=== PATIENT | female | born 1980 | race Caucasian/White ===

== ENCOUNTER 2018-05-29 10:14 | Outpatient (CLI) | END 2018-05-29 13:30 | disposition home or self-care (01) ==

== ENCOUNTER 2018-06-05 08:32 | Outpatient (CLI) | payer OTHER ==
[~2018-06-05] VITALS: Ht 160 cm; Wt 110.0 kg
[~2018-06-05 08:32] MED LIST: FER325 PO; FLUT1AER INHALATION; PREN-93 PO
[2018-06-05 09:01] VITALS: Ht 160 cm; Wt 110.0 kg
[2018-06-05 09:02] VITALS: BP 119/71; PULSE 76; RESP 20
--- NOTE | 2018-06-05 12:19 | PN ---
Triage Information Date/Time Reason for visit: 38+wks Hx of IUFD for NST BPP Weeks of Gestation 38+ /Para 5/4 Diabetes: none Hypertention: none Objective Vital Signs Date Temp Pulse Resp B/P (MAP) Pulse Ox O2 O2 Flow FiO2 Time Delivery Rate 06/05/18 97.7 76 20 119/71 Room Air 09:02 (87) Results/Medications Results 24 hrs Laboratory Tests Test 06/05/18 11:10 Membranes Rupture NEGATIVE Disposition: Discharge Assessment/Plan BP 03/15 Precautions discussed Questions answered Follow up with provider CHRISTEN SHEFFIELD M.D. Jun 05, 2018 12:19
--- NOTE | 2018-06-05 13:17 | TRIAGE ---
OB Triage Datetime Report Generated by CPN: 06/05/2018 13:17 Datetime: 06/05/2018 10:45 Labor Evaluation Frequency: NONE Pattern: Normal: <= 5 Contractions in 10 Minutes Resting Tone Tea: Relaxed Heart Rate FHR Baseline Rate: 135 Monitor Mode: External US FHR Baseline Changes: No Baseline Change Variability: Moderate 6-25 bpm Accelerations: 15X15 Decelerations: None Category: Category I Pain Assessment Pain Scale: 0 Pain Goal: 0 Datetime: 06/05/2018 08:51 Maternal Assessment Level of Consciousness: Fully Conscious DTR's/Clonus: DTRs 2+; No Clonus Headache: Denies Blurred Vision: No Respiratory Effort: Unlabored; Regular Rhythm; Equal Expansion Breath Sounds, Left: Clear and Equal Breath Sounds, Right: Clear and Equal Nausea/Vomiting: Denies RUQ Epigastric Pain: Denies Facial Edema: None Temperature Route: Axillary Fall Risk Assessment History of Falling: (0) No Secondary Diagnosis: (0) No Ambulatory Aid: (0) Bedrest/Nurse Assist IV Therapy: (0) No Gait: (0) Normal/Bedrest/Immobile Mental Status: (0) Oriented to Own Ability Fall Score: 0 Fall Risk Score Definition: No Risk: No action required Datetime: 06/05/2018 08:45 Maternal Assessment Level of Consciousness: Fully Conscious DTR's/Clonus: DTRs 2+ Headache: Denies Blurred Vision: No Nausea/Vomiting: Denies RUQ Epigastric Pain: Denies Facial Edema: None Pattern: Normal: <= 5 Contractions in 10 Minutes Heart Rate FHR Baseline Rate: 145 Monitor Mode: External US FHR Baseline Changes: No Baseline Change Variability: Moderate 6-25 bpm Accelerations: 10X10 Decelerations: None Category: Category I Pain Assessment Pain Scale: 0 Pain Presence: None/Denies Pain Type: N/A Pain Goal: 0 Vaginal Exam Membrane Status: Intact Datetime: 05/29/2018 10:52 Time of Arrival: 06/05/2018 09:30 EGA: 37.5 Arrived By: Ambulatory Arrived From: Home Chief Complaint: NST/BPP DUE TO TERM FD WITH PRIOR Movement: Present Contractions: Denies/Absent Rupture of Membranes: Denies Vaginal Bleeding: None Vaginal Discharge: Denies Recent Sexual Intercouse: Denies Abdominal Trauma: Not Applicable Patient Complaints: None Provider Notified: DR patterson Initial Plan: EFM,NST.BPP Datetime: 05/29/2018 10:41 Fall Score: 0 Fall Risk Score Definition: No Risk: No action required
== END 2018-06-05 12:20 | disposition home or self-care (01) ==
LOC: OBT 08:32 → L-D 08:33 → OBT 12:20
PROVIDERS: ATTEND Specialist
DX: O09.293 Supervision of pregnancy with other poor reproductive or obstetric history, third trimester (principal); O36.8330 Maternal care for abnormalities of the fetal heart rate or rhythm, third trimester, not applicable or unspecified; O09.523 Supervision of elderly multigravida, third trimester; Z3A.38 38 weeks gestation of pregnancy
CPT/HCPCS: 76815; 76818; 84112; Z7500; G0463

== ENCOUNTER 2018-06-07 07:53 | Inpatient (IN) | payer OTHER ==
[~2018-06-07] VITALS: Ht 162.6 cm; Wt 94.2 kg
[2018-06-07] MEDS ORDERED: LACTATED RINGER'S 1,000 ML IV PRN (08:21)
[2018-06-07 08:30] VITALS: BP 120/70; PULSE 84; RESP 19; Ht 162.6 cm; Wt 94.2 kg
[2018-06-07] MEDS ORDERED: OXYTOCIN 30 UNITS/LR 500 ML IV SCH ×2 (08:30)
[2018-06-07] MEDS ORDERED: IBUPROFEN 600 MG TAB PO PRN (08:30)
[2018-06-07] MEDS ORDERED: BUTORPHANOL 2 MG INJ IV PRN (08:30)
[2018-06-07] MEDS ORDERED: METHYLERGONOVINE 0.2 MG INJ IM PRN (08:30)
[2018-06-07] MEDS ORDERED: MISOPROSTOL 200 MCG TAB PR PRN (08:30)
[2018-06-07] MEDS ORDERED: BUTORPHANOL 1 MG INJ IV PRN (08:30)
[2018-06-07] MEDS ORDERED: OXYTOCIN 30 UNITS/LR 500 ML IV PRN (08:30)
[2018-06-07] MEDS ORDERED: CARBOPROST 250 MCG INJ IM PRN (08:30)
[2018-06-07] MEDS ORDERED: LIDOCAINE 1% (MPF) 30 ML INJ INJ PRN (08:30)
[2018-06-07] MEDS: LACTATED RINGER'S 1,000 ML IV SCH ×3 (11:18→19:05)
[2018-06-07] MEDS: OXYTOCIN 30 UNITS/LR 500 ML IV SCH (12:17)
--- NOTE | 2018-06-07 16:03 | HP ---
Date/Time of Note Date/Time of Note DATE: 06/07/18 TIME: 15:58 OB - History Hx of Present Free Text/Dictation 37 years old with single intrauterine at 38 weeks with a NEVILLE of 06/21/2017 with history of term demise scheduled for induction of labor. She states good movement. She denies nausea, vomiting, shortness of breath, chest pain, headache, visual changes, vaginal bleeding or LOF. Chief Complaint: Scheduled for induction of labor Estimated Due Date: Jun 21, 2017 : 6 Para: 4 Spontaneous : 0 Therapeutic : 1 Care: Good Care Ultrasounds: Normal mid trimester US Obstetrical Complications: None Medical Complications: None Past Family/Social History * Past Medical, Surgical, Family and Obstetric Histories reviewed from chart. Blood Type: AB+ Rubella: immune RPR/VDRL: Negative GBS Status: Negative HBsAG: Negative OB Admission Exam Vital Signs Vital Signs Vital Signs Date Temp Pulse Resp B/P (MAP) Pulse Ox O2 O2 Flow FiO2 Time Delivery Rate 06/07/18 98.0 84 19 120/70 Room Air 08:30 (87) Physical Exam HEENT: WNL Heart: Rhythm Normal Lungs: Clear Abdomen: WNL Extremities: Normal Cervical Dilatation: 3cm Effacement: 50% Station: -2 Membranes: Intact Heart Rate: 130's Accelerations: Accelerations Present Decelerations: No Decelerations Varibility: Moderate Contractions on Admission: >10 Minutes Apart Intensity: Mild Last 72 hours Lab Results CBC & BMP 06/07/18 10:30 OB Assessment/Plan Other plan: 37 years old at 38 weeks with history of term demise admitted for induction of labor. - FHR: No sign of metabolic acidosis- Category I - Continuous EFM, toco - CBC, blood type and screen - Analgesia options with R/B/A discussed in detail with patient - Epidural per patient request - Please see the orders - AB+/Rubella: Immune - GBS: negative Admission, procedures, expectations, risks and possible complications have been discussed in detail with the patient. Risk of vaginal delivery including but not limited to bleeding, infection, cervical laceration, placental retention, injury to fetus, blood transfusion, blood transfusion related infection, risk of anesthesia, adhesion, cervical laceration, episiotomy/laceration, possible delivery with risk of bleeding, infection, injury to other organs (bowel, bladder, ureter, vessels, nerves), injury to fetus, blood transfusion, blood transfusion related infection, risk of anesthesia, scar and hernia formation, needs for future , removal of uterus or any other indicated surgery discussed with the patient. She expressed understanding and repeats the risks. All of her questions were answered. She signed the informed consent. PHYSICIAN'S VERIFICATION OF INFORMED CONSENT The patient was counseled regarding the procedure, its indications, risks, potential complications and alternatives and any questions were answered. Consent was obtained. PLANNED PROCEDURE/TREATMENT: Vaginal delivery, episiotomy, repair of laceration possible delivery MECHELLE ELMORE Jun 07, 2018 16:03
--- NOTE | 2018-06-07 17:13 | PREAC ---
Date/Time of Note Date/Time of Note DATE: 06/07/18 TIME: 17:12 Anesthesia Eval and Record Evaluation Time Pre-Procedure Interview DATE: 06/07/18 TIME: 17:12 Age 37 Sex female NPO: 8 hrs Preoperative diagnosis labor pain Planned procedure labor epidural Past Medical History Past Medical History: None Surgery & Anesthesia Issues No known issue Meds Anticoagulation: No Beta Giovany within 24 hr: No Reason Beta Giovany not given: Pt. not on B-Giovany Reported Medications Fluticasone-Vilanterol (Breo Ellipta Inhaler) 100-25 Mcg/Actuation Aer.pow.ba, 1 PUFF INHALATION DAILY, #1 INHALER 05/29/18 Ferrous Sulfate* (Ferrous Sulfate*) 325 Mg Tabec, 325 MG PO DAILY, TAB 05/29/18 Vit No.124/Iron/FA ( Vitamin Tablet) 1 Each Tablet, 1 EACH PO DAILY, TAB 05/29/18 Current Medications Lactated Ringer's 1,000 ml @ 125 mls/hr Q8H IV Last administered on 06/07/18at 11:18; Admin Dose 125 MLS/HR; Start 06/07/18 at 08:21 Butorphanol Tartrate (Stadol) 1 mg Q2H PRN IV PAIN; Start 06/07/18 at 08:30 Butorphanol Tartrate (Stadol) 2 mg Q2H PRN IV PAIN; Start 06/07/18 at 08:30 Lidocaine (Xylocaine 1% (Mpf)) 30 ml ONCE PRN INJ EPISIOTOMY; Start 06/07/18 at 08:30 Oxytocin/Lactated Ringer's 500 ml @ 500 mls/hr ONCE POST IV ; Start 06/07/18 at 08:30 Oxytocin/Lactated Ringer's 500 ml @ 125 mls/hr POST IV ; Start 06/07/18 at 08:30 Ibuprofen (Motrin) 600 mg ONCE PRN PO PAIN LEVEL 1-5; Start 06/07/18 at 08:30 Lactated Ringer's 1,000 ml @ 2,000 mls/hr Q30M PRN IV ANESTHESIA; Start 06/07/18 at 08:21 Oxytocin/Lactated Ringer's 500 ml @ 0 mls/hr ONCE PRN IV VAGINAL BLEEDING; Star t 06/07/18 at 08:30 Methylergonovine Maleate (Methergine) 0.2 mg ONCE PRN IM VAGINAL BLEEDING; Start 06/07/18 at 08:30 Carboprost Tromethamine (Hemabate) 250 mcg ONCE PRN IM VAGINAL BLEEDING; Start 06/07/18 at 08:30 Misoprostol (Cytotec) 1,000 mcg ONCE PRN HI VAGINAL BLEEDING; Start 06/07/18 at 08:30 Oxytocin/Lactated Ringer's 500 ml @ 0 mls/hr Q0M IV Last administered on 06/07/18at 12:17; Admin Dose 1 MLS/HR; Start 06/07/18 at 12:00 Meds reviewed: Yes Allergies Coded Allergies: No Known Allergy (Unverified , 05/29/18) Allergies Reviewed: Yes Labs/Studies Labs Reviewed: Reviewed by anesthesiologist Result Diagram: 06/07/18 1030 Laboratory Tests 06/07/18 10:30 Blood Bank Test 06/07/18 10:30 Antibody Screen NEGATIVE Blood Type AB POSITIVE Rh Immune Globulin Candidate NO test: Positive Pre-procedure Exam Last vitals Vital Signs Date Temp Pulse Resp B/P (MAP) Pulse Ox O2 O2 Flow FiO2 Time Delivery Rate 06/07/18 98.0 84 19 120/70 Room Air 08:30 (87) Airway: Adequate mouth opening, Adequate thyromental dist Mallampati: Mallampati III Teeth: Normal Lung: Normal Heart: Normal ASA Physical Status ASA physical status: 2 Emergency: None Planned Anesthetic Neuraxial: Epidural Planned Pain Management Epidural, Parenteral pain med, Other neuraxial med Pre-operative Attestations Prior to commencing anesthesia and surgery, the patient was re-evaluated, there was verification of: *The patient's identity *The results of appropriate recent lab work and preoperative vital signs *The above evaluation not changing prior to induction *Anesthetic plan, risk benefits, alternative and complications discussed with patient/family; questions answered; patient/family understands, accepts and w ishes to proceed. ROMINA BASURTO MD Jun 07, 2018 17:13
[2018-06-07] MEDS ORDERED: ZOLPIDEM 5 MG TAB PO PRN (17:30)
[2018-06-07] MEDS ORDERED: KETOROLAC 30 MG INJ IV PRN (17:30)
[2018-06-07] MEDS ORDERED: NALOXONE (0.4 MG/ML) INJ IV PRN (17:30)
[2018-06-07] MEDS ORDERED: DIPHENHYDRAMINE 50 MG INJ IV PRN (17:30)
[2018-06-07] MEDS ORDERED: HYDROmorphONE 0.5 MG/0.5 ML SYG IV PRN ×2 (17:30)
[2018-06-07] MEDS ORDERED: NALBUPHINE HCL (10 MG/1 ML) INJ IV PRN (17:30)
[2018-06-07] MEDS ORDERED: ONDANSETRON 4 MG INJ IV PRN (17:30)
--- NOTE | 2018-06-07 20:21 | QN ---
Documentation Comment I was called by RN to evaluate the patient that has been admitted for induction of labor due to history of prior IUFD at term and vaginal bleeding Reports had history of Low lying placenta. Patient apparently was feeling her water bag was broken due to gush of fluid, noted by RN that has bleeding with a large blood clot. QBL estimated to be 150 cc, Primary attending. Dr. Vaughan requested evaluation and AROM Attended to the patient's bed side.Noted comfortable with epidural Tracing evaluated. Cat 1 contractions every 2-3 min noted SVE: 3-4/20/-3, vertex No forebag noted Appears to be SROM No active bleeding noted Discussed with RN rossam findings Start pitocin Watch carefully tracing and for bleeding Anticipate PURVI ARMENDARIZ MD Jun 07, 2018 20:21
[2018-06-07] MEDS: FENTAnyl 2MCG/ML-ROPIV 0.2% 100 ML BAG EPI SCH (22:42)
[2018-06-08] MEDS ORDERED: MINERAL OIL LIGHT 10 ML VIAL TOP PRN
[2018-06-08] MEDS ORDERED: ALBUTEROL HFA 8 GM INHALER INH PRN
[2018-06-08] MEDS: FENTAnyl 2MCG/ML-ROPIV 0.2% 100 ML BAG EPI SCH (00:12)
[2018-06-08] MEDS: LACTATED RINGER'S 1,000 ML IV* SCH ×3 (01:14→17:14)
--- NOTE | 2018-06-08 01:14 | LDN ---
Date/Time of Note Date/Time of Note DATE: 06/08/18 TIME: 01:09 Delivery Summary 37 YO with EDC 06/21/2017 who was induced due to h/o IUFD. s/p of viable male infant with APGARS 8/8 with intact peritoneum, placenta delivered spontaneously and intact Placenta Delivered: Spontaneously Meconium: Light Episiotomy: No Perineal laceration: 0 Anesthesia type: Epidural Sponge & Needle done & correct: Yes All needle counts correct: Yes Any foreign bodies felt in the: No Infant Delivery Information Sex Sex: male Apgars 1 Minute: 8 5 Minute: 8 Suctioning Nose & mouth suctioned at [place]: No Delee suction performed: No Umbilical Cord Umbilical cord with: 3 Vessels Cord presentations: nuchal cord Nuchal cord present X: 2 Cord Blood was obtained: Yes Mother & Baby Disposition Disposition Mom & Baby to Maternity; Good: Yes RASHI LUCAS MD Jun 08, 2018 01:14
--- NOTE | 2018-06-08 01:23 | PAC ---
Date/Time of Note Date/Time of Note DATE: 06/08/18 TIME: 01:23 Post-Anesthesia Notes Post-Anesthesia Note Last documented vital signs Vital Signs Date Temp Pulse Resp B/P (MAP) Pulse Ox O2 O2 Flow FiO2 Time Delivery Rate 06/07/18 98.0 84 19 120/70 Room Air 08:30 (87) Activity: WNL Respiratory function: WNL Cardiovascular function: WNL Mental status: Baseline Pain reasonably controlled: Yes Hydration appropriate: Yes Nausea/Vomiting absent: Yes ROMINA BASURTO MD Jun 08, 2018 01:23
[2018-06-08] MEDS ORDERED: ONDANSETRON 4 MG INJ IV PRN (01:30)
[2018-06-08] MEDS ORDERED: CARBOPROST 250 MCG INJ IM PRN (01:30)
[2018-06-08] MEDS ORDERED: DIPHENHYDRAMINE 50 MG INJ IV PRN (01:30)
[2018-06-08] MEDS ORDERED: WITCH HAZEL/GLYCERIN PAD PR PRN (01:30)
[2018-06-08] MEDS ORDERED: ONDANSETRON 4 MG TAB PO PRN (01:30)
[2018-06-08] MEDS ORDERED: DIPHENHYDRAMINE 25 MG CAP PO PRN (01:30)
[2018-06-08] MEDS ORDERED: MAGNESIUM HYDROXIDE 30ML CUP PO PRN (01:30)
[2018-06-08] MEDS ORDERED: LANOLIN HPA 1 PKT TOP PRN (01:30)
[2018-06-08] MEDS ORDERED: SENNA/DOCUSATE NA (8.6MG/50MG) TAB PO PRN (01:30)
[2018-06-08] MEDS ORDERED: BENZOCAINE 20% 56 ML SPRAY TOP PRN (01:30)
[2018-06-08] MEDS ORDERED: DIBUCAINE 1% 30 GM OINT TOP PRN (01:30)
[2018-06-08] MEDS ORDERED: HYDROCODONE/APAP (5/325) TAB PO PRN ×2 (01:30)
[2018-06-08] MEDS ORDERED: OXYTOCIN 30 UNITS/LR 500 ML IV PRN (01:30)
[2018-06-08] MEDS ORDERED: MISOPROSTOL 200 MCG TAB PR PRN (01:30)
[2018-06-08] MEDS ORDERED: NA PHOSPHATE/BIPHOS 133 ML ENEMA PR PRN (01:30)
[2018-06-08 03:15] VITALS: BP 129/77; PULSE 74; RESP 19
[2018-06-08] MEDS: OXYTOCIN 30 UNITS/LR 500 ML IV SCH (03:36)
[2018-06-08 03:45] VITALS: BP 116/71; PULSE 72; RESP 19
--- NOTE | 2018-06-08 06:17 | NUR ---
eoss. stable vital signs . afebrile. voided once in the unit .scanty lochia. ambulating & voided well without difficulty. bonding well with baby. fob at bedside for support
[2018-06-08 08:15] VITALS: BP 107/57; PULSE 96; RESP 18
[2018-06-08] MEDS: FLUTICASONE/VILANTEROL 100-25 INH SCH (12:00)
[2018-06-08] MEDS: SENNA/DOCUSATE NA (8.6MG/50MG) TAB PO SCH ×2 (12:22→21:00)
[2018-06-08 15:45] VITALS: BP 117/75; PULSE 82; RESP 18
[2018-06-08] MEDS: IBUPROFEN 600 MG TAB PO SCH (18:00)
--- NOTE | 2018-06-08 18:17 | NUR ---
EOSS: Vital signs stable, denies pain or discomfort at this time. PRN Pecan Gap given x1. Patient refused scheduled Motrin this evening. Bonding with baby.
[2018-06-08 20:00] VITALS: BP 116/59; PULSE 76; RESP 19
[2018-06-09 04:00] VITALS: BP 95/50; PULSE 69; RESP 16
--- NOTE | 2018-06-09 04:38 | NUR ---
EOSS: STABLE CONDITION. VOIDED WELL. LOCHIA MINIMAL. BONDING WELL WITH BABY. NEEDS ATTENDED.
[2018-06-09] MEDS: IBUPROFEN 600 MG TAB PO SCH ×4 (06:00→18:07)
[2018-06-09 08:00] VITALS: BP 126/61; PULSE 71; RESP 18
[2018-06-09] MEDS: SENNA/DOCUSATE NA (8.6MG/50MG) TAB PO SCH ×2 (09:00→21:00)
--- NOTE | 2018-06-09 11:45 | NUR ---
Mother is in the bed with the side rails up,put the side rails up and explained to her again that everytime she breastfeeds the side rails should be up for baby safety and to prevent the baby from falling.Patient refused she said that she could not go the the bathroom when she needs to void,instructed her to call me when she needs to use the restroom or she needs to get up but patient refused.
[2018-06-09] MEDS: FLUTICASONE/VILANTEROL 100-25 INH SCH (12:30)
[2018-06-09 15:54] VITALS: BP_SYST 100; BP_SYST 129; BP_DIAS 55; BP_DIAS 60; PULSE 69; PULSE 81; RESP 18
--- NOTE | 2018-06-09 18:01 | NUR ---
Eoss:Bonding well with baby,vital signs stable,dwenies pain at this time.
[2018-06-09] MEDS ORDERED: DIPHENOXYLATE/ATROPINE TAB PO PRN (19:00)
[2018-06-09] MEDS ORDERED: DIPHENOXYLATE/ATROPINE TAB PO ONE (19:00)
[2018-06-09] MEDS ORDERED: LOPERAMIDE 2 MG CAP PO ONE ×2 (19:00)
[2018-06-09 19:50] VITALS: BP 123/73; PULSE 69; RESP 18
--- NOTE | 2018-06-09 20:45 | NUR ---
INFORMED MOM ABOUT MD ORDER FOR THE BABY TO SUPPLEMENT FORMULA AND REPEAT BILI IN AM . MOM VERBALIZED UNDERSTANDING.
[2018-06-10 04:17] VITALS: BP 111/67; PULSE 80; RESP 18
--- NOTE | 2018-06-10 04:30 | NUR ---
EOSS; STABLE CONDITION. VOIDED WELL, SCANTY LOCHIA. BONDING WELL WITH BABY. ALL NEEDS ATTENDED.
[2018-06-10] MEDS: IBUPROFEN 600 MG TAB PO SCH ×3 (06:00→11:43)
--- NOTE | 2018-06-10 07:40 | PN ---
Date/Time of Note Date/Time of Note DATE: 06/10/18 TIME: 07:38 OB Subjective Subjective Subjective Late entry note. Patient seen on 06/09/2018 at 19:30 PPD# 1 Patient is doing well. She denies nausea, vomiting, shortness of breath, chest pain, headache. She has been ambulating without difficulty, tolerating regular diet. Pain is well controlled on current medications OB Objective Objective Objective Vital Signs Date Temp Pulse Resp B/P (MAP) Pulse Ox O2 O2 Flow FiO2 Time Delivery Rate 06/10/18 98.8 80 18 111/67 Room Air 04:17 (82) General: AAO X 3, comfortable, NAD, appropriate mood and affect. ABD: +BS. Soft, non-tender. Uterus 2 cm below umbilicus Flank: No CVA tenderness (B/L) LE: Mild edema. No clubbing, cyanosis, thigh or calf tenderness (B/L). Homans 'sign is negative OB Assessment/Plan Other plan: 27-year-old s/p normal vaginal delivery at 38 weeks. PPD#1 - AF, VSS - Baby is doing well, at bed side. She is bonding well - Contraception methods with R/B/A/FR discussed - Continue care - Discharge home tomorrow - Rx and instruction given - Follow up in 2 and 6 weeks at clinic MECHELLE ELMORE Jun 10, 2018 07:40
--- NOTE | 2018-06-10 07:42 | DS ---
Date/Time of Note Date/Time of Note DATE: 06/10/18 TIME: 07:40 Obstetrical Discharge Record Final Diagnosis Final Diagnosis: Term delivered Other Final Diagnosis 27-year-old s/p normal vaginal delivery at 38 weeks. PPD#2. Hospital course was unremarkable. She is ambulating and tolerating regular diet. She is voiding without difficulty. Pain is controlled on current medication - AF, VSS - Baby is doing well, at bed side. She is bonding well - Contraception methods with R/B/A/FR discussed - Continue care - Discharge home - Rx and instruction given - Follow up in 2 and 6 weeks at clinic Vaginal Delivery Obstetrical Delivery: Spontaneous Complications Induction: Yes (For history of term demise) Condition on Discharge Physical Assessment Voiding: Yes Bowel Movement: Yes Breast: Soft, non-tender Fundus: Firm Calf Tenderness: No Patient Condition: Stable MECHELLE ELMORE Jun 10, 2018 07:42
[2018-06-10 09:00] VITALS: BP 132/65; PULSE 78; RESP 18
[2018-06-10] MEDS ORDERED: MEASLES,MUMPS,RUBELLA VACCINE INJ SC* ONE (09:00)
[2018-06-10] MEDS: SENNA/DOCUSATE NA (8.6MG/50MG) TAB PO SCH (09:00)
[2018-06-10] MEDS ORDERED: VARICELLA VACCINE LIVE/PF 1,350 UNIT/0.5 ML ML SC* ONE (09:00)
[2018-06-10] MEDS ORDERED: DIPHTH/TET/ACEL PERTUSS (ADULT) 0.5 ML VIAL IM* ONE (09:00)
[2018-06-10] MEDS: FLUTICASONE/VILANTEROL 100-25 INH SCH (11:43)
--- NOTE | 2018-06-10 13:00 | NUR ---
DISCHARGED HOME IN STABLE CONDITION VIA WHEELCHAIR.
== END 2018-06-10 13:00 | disposition home or self-care (01) | DRG 807 ==
LOC: L-D 07:53 → PP1 06-08 03:18
PROVIDERS: ADMIT Specialist; ATTEND Specialist
PROC: 10E0XZZ Delivery of Products of Conception, External Approach (ICD-10-PCS; principal; 2018-06-08)
DX: O69.81X0 Labor and delivery complicated by cord around neck, without compression, not applicable or unspecified (principal); Z37.0 Single live birth; Z3A.38 38 weeks gestation of pregnancy
CPT/HCPCS: 62319; 81003; 85025; 85610; 85730; 86592; 86850; 86900; 86901; 87086; 87340; 99464; J2405; J2590; J3010; J7120